=== PATIENT | male | born 2000 | race Caucasian/White ===

== ENCOUNTER 2023-07-29 08:48 | Emergency (ER) | payer BC ==
[2023-07-29 09:04] VITALS: O2SAT 96
[2023-07-29 09:08] VITALS: TEMP 98.7
--- NOTE | 2023-07-29 09:15 | ERPHSYRPT ---
- History of Present Illness Time Seen by Provider: 07/29/23 09:10 Source: patient, family Exam Limitations: no limitations Patient Subjective Stated Complaint: Pt c/o of "not feeling good" for a few days, reports coughing and now his ribs and chest hurt, states that it feels like a struggle to breath Triage Nursing Assessment: Pt brought to the ER by his mother, hypertensive, tachycardic, tachypnic, rates chest pain as 8/10, hurts worse when coughing, hx of asthma but no issues since around 5 years of age, pulses normal, skin n/w/d, lungs clear, walked to the room with a slow stable gait, doesn't appear to be in any distress Physician History: Patient is 23-year-old male with significant past medical history of asthma started having a fever chills shortness of breath cough since Monday which is 5 days ago. He felt better on Monday but that his symptoms came back on Monday where he started having some fever chills and shortness of breath with mucopurulent phlegm. He started having a body ache headache and not feeling well since yesterday so she came to the emergency room today. In the emergency room he was short of breath but denies any fever chills nausea or vomiting. Timing/Duration: day(s) (5 days) Activities at Onset: none Severity of Dyspnea-Max: moderate Severity of Dyspnea-Current: mild Possible Cause: occasional episodes Associated Symptoms: lightheadedness, wheezing, weakness, painful breathing, productive cough Allergies/Adverse Reactions: No Known Drug Allergies Allergy (Verified 07/29/23 09:03) Hx Influenza Vaccination/Date Given: No Hx Pneumococcal Vaccination/Date Given: No Travel Risk - International Travel Have you traveled outside of the country in past 3 weeks: No - Coronavirus Screening Are you exhibiting any of the following symptoms?: Yes Symptoms: Cough: New Onset, Shortness of Breath Close contact with a COVID-19 positive Pt in past 14-21 Days: No - Vaccine Status Have you recieved a Covid-19 vaccination: No - Review of Systems Constitutional: No Fever, No Chills Eyes: No Symptoms Ears, Nose, & Throat: No Symptoms Respiratory: Cough, Dyspnea, Wheezing, No Dyspnea on Exertion (METZGER) Cardiac: Chest Pain, No Edema, No Syncope Abdominal/Gastrointestinal: No Abdominal Pain, No Nausea, No Vomiting, No Diarrhea Genitourinary Symptoms: No Dysuria Musculoskeletal: No Back Pain, No Neck Pain Skin: No Rash Neurological: No Dizziness, No Focal Weakness, No Sensory Changes Psychological: No Symptoms Endocrine: No Symptoms All Other Systems: Reviewed and Negative - Past Medical History Pertinent Past Medical History: Yes Respiratory History: Asthma - Past Surgical History Past Surgical History: Yes Musculoskeletal: Orthopedic Surgery Other Surgical History: feet--flat footed - Social History Smoking Status: Never smoker Exposure to second hand smoke: No Drug Use: none Patient Lives Alone: No - Nursing Vital Signs Nursing Vital Signs: Initial Vital Signs Temperature 98.7 F 07/29/23 08:54 Pulse Rate 117 H 07/29/23 08:54 Respiratory Rate 27 H 07/29/23 08:54 Blood Pressure 149/99 07/29/23 08:54 O2 Sat by Pulse Oximetry 96 07/29/23 08:54 Pain Scale Pain Intensity 8 - Physical Exam General Appearance: no apparent distress, alert Eye Exam: PERRL/EOMI Neck Exam: normal inspection, supple Respiratory Exam: diminished breath sounds, rhonchi, wheezing Cardiovascular/Chest Exam: normal heart sounds, regular rate/rhythm Abdominal/Gastrointestinal Exam: soft, No tenderness, No distention, No mass Extremity Exam: non-tender, normal range of motion, normal inspection, no calf tenderness, no pedal edema Neurologic Exam: alert, oriented x 3, cooperative, respite care provider II-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 nml as tested, sensation nml, No motor deficits Skin Exam: normal color, warm, No dry SpO2 Interpretation: normal SpO2: 96 O2 Delivery: Room Air - Course Nursing assessment & vital signs reviewed: Yes EKG Interpreted by Me: Sinus Rhythm - Radiology Exams Chest X-ray Interpretation: Reviewed by me (right lower lobe pneumonia) Ordered Tests: Active Orders 24 hr Category Date Time Status EKG-ER Only STAT Care 07/29/23 09:01 Active CHEST 2 VIEWS (PA AND LAT) Stat Exams 07/29/23 09:01 Taken CBC W DIFF Stat Lab 07/29/23 09:10 Completed CMP Stat Lab 07/29/23 09:10 Completed Medication Summary Discontinued Medications Generic Name Dose Route Start Last Admin Trade Name Freq PRN Reason Stop Dose Admin Ceftriaxone Sodium 1,000 mg 07/29/23 09:33 07/29/23 09:53 Ceftriaxone Sodium 1000 Mg Inj Vial IM 07/29/23 09:34 1,000 mg STAT ONE Administration Ceftriaxone Sodium Confirm 07/29/23 09:46 Ceftriaxone Sodium 1000 Mg Inj Vial Administered 07/29/23 09:47 Dose 1,000 mg .ROUTE .STK-MED ONE Lab/Rad Data: Laboratory Result Diagrams 07/29/23 09:10 07/29/23 09:10 Laboratory Results 07/29/23 07/29/23 07/29/23 Range/Units 09:10 09:10 09:10 WBC 11.5 H (4.0-10.5) x10^3/uL RBC 5.81 H (4.1-5.6) x10^6/uL Hgb 17.2 (12.5-18.0) g/dL Hct 48.4 (42-50) % MCV 83.3 (78-100) fL MCH 29.6 (26-32) pg MCHC 35.5 (32-36) g/dL RDW 12.6 (11.5-14.0) % Plt Count 202 (150-450) x10^3/uL MPV 8.4 (7.5-11.0) fL Gran % 82.4 H (36.0-66.0) % Immature Gran % (Auto) 0.3 (0.00-0.4) % Nucleat RBC Rel Count 0.0 (0.00-0.1) % Eos # (Auto) 0.17 (0-0.5) x10^3/uL Immature Gran # (Auto) 0.03 (0.00-0.03) x10^3u/L Absolute Lymphs (auto) 0.86 L (1.0-4.6) x10^3/uL Absolute Monos (auto) 0.93 (0.0-1.3) x10^3/uL Absolute Nucleated RBC 0.00 (0.00-0.01) x10^3u/L Lymphocytes % 7.5 L (24.0-44.0) % Monocytes % 8.1 (0.0-12.0) % Eosinophils % 1.5 (0.00-5.0) % Basophils % 0.2 (0.0-0.4) % Absolute Granulocytes 9.44 H (1.4-6.9) x10^3/uL Basophils # 0.02 (0-0.4) x10^3/uL Sodium 137 (137-145) mmol/L Potassium 3.9 (3.5-5.1) mmol/L Chloride 102 (98-107) mmol/L Carbon Dioxide 24 (22-30) mmol/L Anion Gap 14.7 (5-15) MEQ/L BUN 12 (9-20) mg/dL Creatinine 0.93 (0.66-1.25) mg/dL Estimated GFR 117.6 ML/MIN Glucose 114 H (74-106) mg/dL Calcium 9.1 (8.4-10.2) mg/dL Total Bilirubin 0.60 (0.2-1.3) mg/dL AST 26 (17-59) U/L ALT 27 (0-50) U/L Alkaline Phosphatase 101 (38-126) U/L Serum Total Protein 8.0 (6.3-8.2) g/dL Albumin 4.6 (3.5-5.0) g/dL Influenza Type A Ag NEGATIVE (NEGATIVE) Influenza Type B Ag NEGATIVE (NEGATIVE) RSV (PCR) NEGATIVE (NEGATIVE) SARS-CoV-2 (PCR) NEGATIVE (NEGATIVE) - Progress Progress: improved Air Movement: good Blood Culture(s) Obtained: No Antibiotics given: Yes Counseled pt/family regarding: lab results, diagnosis, need for follow-up, rad results Medical Desision Making - Independent Historian Additional History obtained from: Mother - Discussion of managment Reviewed:: Test results - Diagnostic Testing Diagnostic test were ordered, analyzed, and reviewed by me: Yes Radiological Interpretation: Reviewed by me - Risk of complications Low Risk: Low risk of morbidity from additional dx testing or treatment - Departure Departure Disposition: Home Clinical Impression: Right lower lobe pneumonia Qualifiers: Pneumonia type: due to Pneumococcus Qualified Code(s): J13 - Pneumonia due to Streptococcus pneumoniae Condition: Stable Critical Care Time: No Referrals: ADOLFO NESBITT NP [Primary Care Provider] - Follow up/PCP as directed Instructions: Pneumonia, Adult (DC) Additional Instructions: Discharge/Care Plan ANGEL ELLINGTON was seen on 07/29/23 in the Emergency Room. The patient was counseled regarding Diagnosis,Lab results, Imaging studies, need for follow up and when to return to the Emergency Room. Prescriptions given: Discharge Note I have spoken with the patient and/or caregivers. I have explained the patient's condition, diagnosis and treatment plan based on the information available to me at this time. I have answered the patient's and/or caregiver's questions and addressed any concerns. The patient and/or caregivers have as good understanding of the patient's diagnosis, condition and treatment plan as can be expected at this point. The vital signs have been stable. The patient's condition is stable and appropriate for discharge from the emergency department. The patient will pursue further outpatient evaluation with the primary care physician or other designated or consulting physician as outlined in the discharge instructions. The patient and/or caregivers are agreeable to this plan of care and follow-up instructions have been explained in detail. The patient and/or caregivers have received these instruction. The patient/and or caregivers are aware that any significant change in condition or worsening of symptoms anna uld prompt an immediate return to this or the closest emergency department or call 911. MAULIKMERRILLANGEL was seen on 07/29/23 n the Emergency Room. At that time you were treated for an emergent condition, during your visit Laboratory, Radiology and/or other procedures may have been ordered. It is very important that you follow-up with your Primary Care Physician ADOLFO NESBITT within the next 24- 48 hours to review your Emergency Room visit and the final results of testing that was ordered. Some test results such as Urine Cultures, Blood Cultures, and other cultures if ordered will not be finalized for 24-48 hours. If you do not have a Primary Care Provider please call the medical records department at [phone] ext [phone] to obtain a copy of your results or you may sign into our patient portal to obtain these results by visiting us @ [email or web address] and completing the following steps: 1. Click on the Patient Portal link 2. Click the Patient Self Enrollment Link to complete the enrollment form and en tering your 3. Once the enrollment form is completed you will receive an email with a temporary ID and password at the email address you provided. 4. Next choose a user name and password. Your user name must be at least 4 characters long and your password must be at least 4 characters long. 5. Choose a security question from the list and provide your answer to the question. If you already have signed into the Health Portal you may access your Health Care Information 27/02 by the following steps: 1. Login to our website @ [email or web address] 2. Enter your original user name and password. FAQS The [facility] Health Portal is an online tool that contains your Lab Results, Radiology Reports, Visit History, Discharge Instructions and Health Summary Lab and Radiology Results will not be available for 72 hours on the portal. The Portal is a secure site, passwords are encryted and URLs are re-written so they cannot be copied and pasted. You and authorized family members are the only ones who can access your Portal. Also there is a timeout feature that protects your information if you leave the Portal page open. If you have technical difficulty please use the Contact Us link on the page this will allow you to submit any questions you have regarding the Portal or you may contact the Medical Record Department at [phone] ext [phone]. Prescriptions: Amoxicillin 500 mg Cap [Amoxil 500 mg] 500 mg PO TID #30 cap Benzonatate 200 mg PO QID #30 cap
[2023-07-29 09:23] LABS: Absolute Neutrophil Ct (ANC) 9.44 x10^3/uL (1.4-6.9); BASOPHIL % 0.2 % (0.0-0.4); Basophil (Absolute #) 0.02 x10^3/uL (0-0.4); Eosinophil % 1.5 % (0.00-5.0); Eosinophil (Absolute #) 0.17 x10^3/uL (0-0.5); Hematocrit 48.4 % (42-50); Hemoglobin 17.2 g/dL (12.5-18.0); IMMATURE GRAN # 0.03 x10^3u/L (0.00-0.03); IMMATURE GRAN % 0.3 % (0.00-0.4); Lymphocyte (Absolute #) 0.86 x10^3/uL (1.0-4.6); Lymphocytes % 7.5 % (24.0-44.0); Mean Cell Volume 83.3 fL (78-100); Mean Corpuscular Hemoglobin 29.6 pg (26-32); Mean Corpuscular Hgb Concent. 35.5 g/dL (32-36); Mean Platelet Volume 8.4 fL (7.5-11.0); Monocyte (Absolute #) 0.93 x10^3/uL (0.0-1.3); Monocytes % 8.1 % (0.0-12.0); Neutrophil % 82.4 % (36.0-66.0); Platelet Count 202 x10^3/uL (150-450); Red Blood Count 5.81 x10^6/uL (4.1-5.6); Red Cell Distribution Width 12.6 % (11.5-14.0); White Blood Count 11.5 x10^3/uL (4.0-10.5)
[2023-07-29] MEDS ORDERED: Rocephin 1000 MG INJ IM ONE (09:33)
[2023-07-29 09:36] LABS: ALBUMIN 4.6 g/dL (3.5-5.0); ANION GAP 14.7 MEQ/L (5-15); BILIRUBIN,TOTAL 0.6 mg/dL (0.2-1.3); Calcium 9.1 mg/dL (8.4-10.2); Creatinine 1 0.93 mg/dL (0.66-1.25); EST GLOMERULAR FILTRATION RATE 117.6 ML/MIN; Potassium 3.9 mmol/L (3.5-5.1)
[2023-07-29] MEDS ORDERED: Rocephin 1000 MG INJ ONE (09:46)
[2023-07-29 09:54] VITALS: PULSE 106; RESP 26
[2023-07-29 09:55] LABS: INFLUENZA A NEGATIVE (NEGATIVE); INFLUENZA B NEGATIVE (NEGATIVE); RESPIRATORY SYNCTIAL VIRUS NEGATIVE (NEGATIVE); SARS-CoV-2 Xpert Express NEGATIVE (NEGATIVE)
[2023-07-29 10:27] VITALS: BP 124/88
--- NOTE | 2023-07-29 20:52 | XRAY ---
Indication: Short of breath. Comparison: None PA/lateral chest demonstrates lingula infiltrate. Incidental left upper lobe calcified granuloma. Remaining heart and lungs unremarkable. Bony thorax intact.
== END 2023-07-29 10:27 | disposition home or self-care (01) ==
LOC: ED 08:48
DX: J13 Pneumonia due to Streptococcus pneumoniae (principal); R50.9 Fever, unspecified; R06.02 Shortness of breath; R05.1 Acute cough; M79.10 Myalgia, unspecified site; R51.9 Headache, unspecified; Z28.310 Unvaccinated for COVID-19
CPT/HCPCS: 0241U; 36415; 71046; 80053; 85025; 93005; 96372; 99284; J0696

== ENCOUNTER 2023-08-02 19:14 | Observation (INO) | payer BC ==
--- NOTE | 2023-08-02 19:31 | ERPHSYRPT ---
- History of Present Illness Time Seen by Provider: 08/02/23 19:20 Source: patient Exam Limitations: no limitations Patient Subjective Stated Complaint: pt for shortness of breath that started last night, pt was recently diagnosed with PNA on Monday in ED and prescribed antibiotic which he is still currently taking and a cough medicine Triage Nursing Assessment: pt ambulatory to bed by self with steady gait, pt alert and oriented x3, skin pwd, pt c/o increased shortness of breath since last night, pt states he was recently diagnosed with pneumonia on monday in ED and was given amoxicillin antibiotic and cough medication for home, pt currently taking both medications, no resp distress noted, lung sounds clear and equal through out antierorly and posteriorly. Physician History: Patient is a 23-year-old male presents to our ED for evaluation of shortness of breath. Patient was in our ED on Monday, 4 days ago with the same. Patient was diagnosed with a pneumonia. Patient started on amoxicillin and a cough medication. Patient states he feels that his shortness of breath is progressing. 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 Symptoms are progressive. Symptoms are moderate in intensity. Exertion worsens symptoms. Patient states otherwise healthy. He is a non-smoker. He voices no other complaints or concerns at this time. Portions of this note were created with voice recognition technology. There may be grammatical, spelling, punctuation or sound alike errors Timing/Duration: day(s) (4 days) Activities at Onset: activity Severity of Dyspnea-Max: moderate Severity of Dyspnea-Current: mild Modifying Factors: Improves With: activity Associated Symptoms: denies symptoms Allergies/Adverse Reactions: No Known Drug Allergies Allergy (Verified 08/02/23 19:15) Hx Tetanus, Diphtheria Vaccination/Date Given: Yes Hx Influenza Vaccination/Date Given: No Hx Pneumococcal Vaccination/Date Given: No Immunizations Up to Date: No Travel Risk - International Travel Have you traveled outside of the country in past 3 weeks: No - Coronavirus Screening Are you exhibiting any of the following symptoms?: Yes Symptoms: Cough: New Onset, Shortness of Breath Close contact with a COVID-19 positive Pt in past 14-21 Days: No - Vaccine Status Have you recieved a Covid-19 vaccination: No - Review of Systems Constitutional: No Symptoms, No Fever, No Chills Eyes: No Symptoms Ears, Nose, & Throat: No Symptoms Respiratory: No Symptoms, No Cough, No Dyspnea Cardiac: No Symptoms, No Chest Pain, No Edema, No Syncope Abdominal/Gastrointestinal: No Symptoms, No Abdominal Pain, No Nausea, No Vomiting, No Diarrhea Genitourinary Symptoms: No Symptoms, No Dysuria Musculoskeletal: No Symptoms, No Back Pain, No Neck Pain Skin: No Symptoms, No Rash Neurological: No Symptoms, No Dizziness, No Focal Weakness, No Sensory Changes Psychological: No Symptoms Endocrine: No Symptoms Hematologic/Lymphatic: No Symptoms Immunological/Allergic: No Symptoms All Other Systems: Reviewed and Negative - Past Medical History Pertinent Past Medical History: Yes Neurological History: No Pertinent History ENT History: No Pertinent History Cardiac History: No Pertinent History Respiratory History: Asthma Endocrine Medical History: No Pertinent History Musculoskeletal History: No Pertinent History GI Medical History: No Pertinent History History: No Pertinent History Psycho-Social History: No Pertinent History Male Reproductive Disorders: No Pertinent History - Past Surgical History Past Surgical History: Yes Neuro Surgical History: No Pertinent History Cardiac: No Pertinent History Respiratory: No Pertinent History Gastrointestinal: No Pertinent History Genitourinary: No Pertinent History Musculoskeletal: Orthopedic Surgery Male Surgical History: No Pertinent History Other Surgical History: feet--flat footed - Social History Smoking Status: Never smoker Exposure to second hand smoke: No Drug Use: none Patient Lives Alone: No - Nursing Vital Signs Nursing Vital Signs: Initial Vital Signs Pulse Rate 89 08/02/23 19:15 Respiratory Rate 28 H 08/02/23 19:15 Blood Pressure 140/92 08/02/23 19:15 O2 Sat by Pulse Oximetry 93 L 08/02/23 19:15 Pain Scale Pain Intensity 6 - Physical Exam General Appearance: no apparent distress, alert Eye Exam: PERRL/EOMI Ears, Nose, Throat Exam: hearing grossly normal, normal ENT inspection, normal pharynx Neck Exam: normal inspection, supple, full range of motion Respiratory Exam: normal breath sounds, lungs clear, airway intact Cardiovascular/Chest Exam: normal heart sounds, regular rate/rhythm Abdominal/Gastrointestinal Exam: soft, No tenderness, No distention, No mass Extremity Exam: non-tender, normal range of motion, normal inspection, no calf tenderness, no pedal edema Neurologic Exam: alert, oriented x 3, cooperative, 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 Minor patchy right middle lobe airspace disease. Tiny pneumomediastinum communi cating with tiny right pneumothorax) Ordered Tests: Active Orders 24 hr Category Date Time Status [employer] Supervisor STAT Care 08/02/23 19:37 Active EKG-ER Only STAT Care 08/02/23 19:36 Active Pulse Oximetry (ED) STAT Care 08/02/23 19:36 Active CHEST WITH CONTRAST [CT] Stat Exams 08/02/23 19:37 Taken CBC W DIFF Stat Lab 08/02/23 19:55 Completed CMP Stat Lab 08/02/23 19:55 Completed TROPONIN Q4H Lab 08/02/23 19:55 Completed TROPONIN Q4H Lab 08/02/23 23:45 Ordered TROPONIN Q4H Lab 08/03/23 03:45 Ordered Transfer Order Routine Transfer 08/02/23 Ordered Medication Summary Generic Name Dose Route Start Last Admin Trade Name Freq PRN Reason Stop Dose Admin Ceftriaxone Sodium/Dextrose 2 g in 50 mls @ 100 mls/hr 08/02/23 22:31 Rocephin 2 Gm-D5w 50ml Bag IV 08/02/23 23:00 STAT STA Azithromycin 500 mg in 250 mls @ 250 mls/hr 08/02/23 22:31 Zithromax 500 Mg/ 250 Ml Nacl Premix IV 08/02/23 23:30 STAT STA Lab/Rad Data: Laboratory Result Diagrams 08/02/23 19:55 08/02/23 19:55 Laboratory Results 08/02/23 08/02/23 08/02/23 Range/Units 19:55 19:55 19:55 WBC 10.7 H (4.0-10.5) x10^3/uL RBC 5.85 H (4.1-5.6) x10^6/uL Hgb 17.1 (12.5-18.0) g/dL Hct 47.5 (42-50) % MCV 81.2 (78-100) fL MCH 29.2 (26-32) pg MCHC 36.0 (32-36) g/dL RDW 12.4 (11.5-14.0) % Plt Count 277 (150-450) x10^3/uL MPV 8.5 (7.5-11.0) fL Gran % 66.9 H (36.0-66.0) % Immature Gran % (Auto) 0.3 (0.00-0.4) % Nucleat RBC Rel Count 0.0 (0.00-0.1) % Eos # (Auto) 0.38 (0-0.5) x10^3/uL Immature Gran # (Auto) 0.03 (0.00-0.03) x10^3u/L Absolute Lymphs (auto) 1.93 (1.0-4.6) x10^3/uL Absolute Monos (auto) 1.15 (0.0-1.3) x10^3/uL Absolute Nucleated RBC 0.00 (0.00-0.01) x10^3u/L Lymphocytes % 18.0 L (24.0-44.0) % Monocytes % 10.7 (0.0-12.0) % Eosinophils % 3.5 (0.00-5.0) % Basophils % 0.6 (0.0-0.4) % Absolute Granulocytes 7.17 H (1.4-6.9) x10^3/uL Basophils # 0.06 (0-0.4) x10^3/uL Sodium 137 (137-145) mmol/L Potassium 3.7 (3.5-5.1) mmol/L Chloride 102 (98-107) mmol/L Carbon Dioxide 27 (22-30) mmol/L Anion Gap 11.9 (5-15) MEQ/L BUN 8 L (9-20) mg/dL Creatinine 0.88 (0.66-1.25) mg/dL Estimated GFR 123.1 ML/MIN Glucose 92 (74-106) mg/dL Calcium 9.4 (8.4-10.2) mg/dL Total Bilirubin 0.90 (0.2-1.3) mg/dL AST 28 (17-59) U/L ALT 28 (0-50) U/L Alkaline Phosphatase 98 (38-126) U/L Troponin I < 0.012 (0.000-0.034) ng/mL Serum Total Protein 8.1 (6.3-8.2) g/dL Albumin 4.8 (3.5-5.0) g/dL - Progress Progress: improved Air Movement: good Progress Note: Case discussed with Dr. Lawson at 10:23 PM. He agrees to admission to [facility] for repeat x-ray in the morning. Plan of care discussed with patient. He agrees to admission at [facility] for further evaluation and treatment. Portions of this note were created with voice recognition technology. There may be grammatical, spelling, punctuation or sound alike errors 08/02/23 22:21 23-year-old male presents to our ER complaining of shortness of breath. Patient was seen 4 days ago in our ED diagnosed with pneumonia. Patient currently on amoxicillin and cough medication. CTA chest reveals tiny pneumomediastinum and tiny right pneumothorax. We will admit patient for observation. Patient currently on oxygen. The known pneumonia was again redemonstrated. Patient dosed with Rocephin and azithromycin. Patient was COVID-negative during his last ED visit 4 days ago. Plan of care discussed with patient. He agrees to admission at [facility] for further evaluation and treatment. Portions of this note were created with voice recognition technology. There may be grammatical, spelling, punctuation or sound alike errors Complexity problem addressed is moderate acute complicated No critical care time Complex of data reviewed and analyzed is extensive. Test ordered test reviewed. Results analyzed and correlated clinically with history and physical examination. Management discussed with general surgery and hospitalist who agreed to admission at [facility] for further evaluation and treatment. Portions of this note were created with voice recognition technology. There may be grammatical, spelling, punctuation or sound alike errors Risk of complication and or risk of morbidity/mortality of patient management is moderate. Patient requires hospitalization for further evaluation and treatment. Vital stable. Time spent admit patient is approximately 20 minutes. Plan of care established for shared decision making. No social determinants of health present impede follow-up. Portions of this note were created with voice recognition technology. There may be grammatical, spelling, punctuation or sound alike errors 08/02/23 22:35 Blood Culture(s) Obtained: No Antibiotics given: No Discussed with Dr.: Stoner (Case discussed with Dr. Murcia at 10:[address] Murcia excepts admission to [facility] for further evaluation and treatment.) Counseled pt/family regarding: lab results, diagnosis, rad results - Departure Departure Disposition: Observation Clinical Impression: Shortness of breath, Pneumomediastinum, Pneumothorax, Pneumonia Condition: Stable Critical Care Time: No Referrals: ADOLFO NESBITT, [employer] [Primary Care Provider] - Follow up/PCP as directed
[2023-08-02 20:04] LABS: Absolute Neutrophil Ct (ANC) 7.17 x10^3/uL (1.4-6.9); BASOPHIL % 0.6 % (0.0-0.4); Basophil (Absolute #) 0.06 x10^3/uL (0-0.4); Eosinophil % 3.5 % (0.00-5.0); Eosinophil (Absolute #) 0.38 x10^3/uL (0-0.5); Hematocrit 47.5 % (42-50); Hemoglobin 17.1 g/dL (12.5-18.0); IMMATURE GRAN # 0.03 x10^3u/L (0.00-0.03); IMMATURE GRAN % 0.3 % (0.00-0.4); Lymphocyte (Absolute #) 1.93 x10^3/uL (1.0-4.6); Mean Cell Volume 81.2 fL (78-100); Mean Corpuscular Hemoglobin 29.2 pg (26-32); Mean Platelet Volume 8.5 fL (7.5-11.0); Monocyte (Absolute #) 1.15 x10^3/uL (0.0-1.3); Monocytes % 10.7 % (0.0-12.0); Neutrophil % 66.9 % (36.0-66.0); Platelet Count 277 x10^3/uL (150-450); Red Blood Count 5.85 x10^6/uL (4.1-5.6); Red Cell Distribution Width 12.4 % (11.5-14.0); White Blood Count 10.7 x10^3/uL (4.0-10.5)
[2023-08-02 20:20] LABS: ALBUMIN 4.8 g/dL (3.5-5.0); ANION GAP 11.9 MEQ/L (5-15); BILIRUBIN,TOTAL 0.9 mg/dL (0.2-1.3); Calcium 9.4 mg/dL (8.4-10.2); Creatinine 1 0.88 mg/dL (0.66-1.25); EST GLOMERULAR FILTRATION RATE 123.1 ML/MIN; Potassium 3.7 mmol/L (3.5-5.1); Total Protein 8.1 g/dL (6.3-8.2)
[2023-08-02] MEDS ORDERED: Zithromax 500 MG/ 250 ML NaCl Premix 500 MG/250 ML IVPB IV STA (22:31)
[2023-08-02] MEDS ORDERED: ROCEPHIN 2 Gm-D5w 50ML BAG** 2 G/50 ML IVPB IV STA (22:31)
[2023-08-02] MEDS ORDERED: ROCEPHIN 2 Gm-D5w 50ML BAG** 2 G/50 ML IVPB IV ONE (22:35)
[2023-08-02] MEDS ORDERED: Robitussin AC Syrup Unit Dose Cup PO PRN (23:30)
[2023-08-02] MEDS ORDERED: Docusate Sodium 100 MG PO PRN (23:45)
[2023-08-02] MEDS ORDERED: Zofran 4 MG/2 ML VIAL IV PRN (23:45)
[2023-08-02] MEDS ORDERED: FEVERALL 650 MG PR PRN (23:45)
--- NOTE | 2023-08-02 23:55 | PCM.HP ---
History of Present Illness - Chief Complaint Chief Complaint: Pneumomediastinum, pneumothorax Date: 08/02/23 History of Present Illness: is a 23 year old male is a patient with a history of Factor V Leiden heterozygosity (but no history of clotting) and a recent diagnosis of a lingular pneumonia approximately 4 days ago (treated with oral Amoxicilin) who now presents to the hospital with worsening cough paroxysms and shortness of breath for 1 day. The cough has been productive intermittently of clear sputum, and he denies hemoptysis. The dyspnea has worsened with activity. - Review of Systems Constitutional: No Symptoms Eyes: No Symptoms Ears, Nose, & Throat: No Symptoms Respiratory: Cough, Short Of Breath Cardiac: No Symptoms Abdominal/Gastrointestinal: No Symptoms Genitourinary Symptoms: No Symptoms Musculoskeletal: No Symptoms Skin: No Symptoms Neurological: No Symptoms Psychological: No Symptoms Endocrine: No Symptoms Hematologic/Lymphatic: No Symptoms Immunological/Allergic: No Symptoms All Other Systems: Reviewed and Negative Medications & Allergies Home Medications: Home Medication List Amoxicillin 500 mg Cap [Amoxil 500 mg] 500 mg PO TID #30 cap 07/29/23 [Rx Confirmed 08/02/23] Benzonatate 200 mg PO QID #30 cap 07/29/23 [Rx Confirmed 08/02/23] Allergies/Adverse Reactions: Allergies Allergy/AdvReac Type Severity Reaction Status Date / Time No Known Drug Allergies Allergy Verified 08/02/23 19:15 - Past Medical History Past Medical History: Yes Neurological History: No Pertinent History ENT History: No Pertinent History Cardiac History: No Pertinent History Respiratory History: Asthma Endocrine Medical History: No Pertinent History Musculoskelatal History: No Pertinent History GI Medical History: No Pertinent History History: No Pertinent History Pyscho-Social History: No Pertinent History Male Reproductive Disorders: No Pertinent History - Past Surgical History Past Surgical History: Yes Neuro Surgical History: No Pertinent History Cardiac History: No Pertinent History Respiratory Surgery: No Pertinent History GI Surgical History: No Pertinent History Genitourinary Surgical Hx: No Pertinent History Musculskeletal Surgical Hx: Orthopedic Surgery Male Surgical History: No Pertinent History Other Surgical History: feet--flat footed - Social History Smoking Status: Never smoker Exposure to second hand smoke: No Alcohol: None Drug Use: none - Physical Exam Vital Signs: Vital Signs - 24 hr Temp Pulse Resp BP BP Pulse Ox 08/02/23 23:19 98.2 F 83 18 137/82 99 08/02/23 23:18 100 08/02/23 22:40 96 08/02/23 22:00 89 26 H 128/97 95 08/02/23 21:33 82 28 H 132/97 94 L 08/02/23 21:00 87 23 123/80 93 L 08/02/23 20:30 90 21 118/78 95 08/02/23 20:00 87 24 110/77 95 08/02/23 19:41 95 08/02/23 19:34 93 H 08/02/23 19:30 85 27 H 113/79 94 L 08/02/23 19:17 98.4 F 95 H 24 140/92 96 08/02/23 19:15 89 28 H 140/92 93 L General Appearance: no apparent distress, alert Neurologic Exam: alert, oriented x 3, cooperative, four slide operator II-XII nml as tested, normal mood/affect, nml cerebellar function Eye Exam: PERRL/EOMI, eyes nml inspection Ears, Nose, Throat Exam: normal ENT inspection Neck Exam: normal inspection, non-tender, supple, full range of motion Respiratory Exam: normal breath sounds, lungs clear Cardiovascular Exam: regular rate/rhythm, normal heart sounds Gastrointestinal/Abdomen Exam: soft, normal bowel sounds Back Exam: normal range of motion Extremity Exam: normal inspection, normal range of motion Skin Exam: normal color Results - Labs Lab/Micro Results: Lab Results-Last 24 Hours 08/02/23 08/02/23 08/02/23 Range/Units 19:55 19:55 19:55 WBC 10.7 H (4.0-10.5) x10^3/uL RBC 5.85 H (4.1-5.6) x10^6/uL Hgb 17.1 (12.5-18.0) g/dL Hct 47.5 (42-50) % MCV 81.2 (78-100) fL MCH 29.2 (26-32) pg MCHC 36.0 (32-36) g/dL RDW 12.4 (11.5-14.0) % Plt Count 277 (150-450) x10^3/uL MPV 8.5 (7.5-11.0) fL Gran % 66.9 H (36.0-66.0) % Immature Gran % (Auto) 0.3 (0.00-0.4) % Nucleat RBC Rel Count 0.0 (0.00-0.1) % Eos # (Auto) 0.38 (0-0.5) x10^3/uL Immature Gran # (Auto) 0.03 (0.00-0.03) x10^3u/L Absolute Lymphs (auto) 1.93 (1.0-4.6) x10^3/uL Absolute Monos (auto) 1.15 (0.0-1.3) x10^3/uL Absolute Nucleated RBC 0.00 (0.00-0.01) x10^3u/L Lymphocytes % 18.0 L (24.0-44.0) % Monocytes % 10.7 (0.0-12.0) % Eosinophils % 3.5 (0.00-5.0) % Basophils % 0.6 (0.0-0.4) % Absolute Granulocytes 7.17 H (1.4-6.9) x10^3/uL Basophils # 0.06 (0-0.4) x10^3/uL Sodium 137 (137-145) mmol/L Potassium 3.7 (3.5-5.1) mmol/L Chloride 102 (98-107) mmol/L Carbon Dioxide 27 (22-30) mmol/L Anion Gap 11.9 (5-15) MEQ/L BUN 8 L (9-20) mg/dL Creatinine 0.88 (0.66-1.25) mg/dL Estimated GFR 123.1 ML/MIN Glucose 92 (74-106) mg/dL Calcium 9.4 (8.4-10.2) mg/dL Total Bilirubin 0.90 (0.2-1.3) mg/dL AST 28 (17-59) U/L ALT 28 (0-50) U/L Alkaline Phosphatase 98 (38-126) U/L Troponin I < 0.012 (0.000-0.034) ng/mL Serum Total Protein 8.1 (6.3-8.2) g/dL Albumin 4.8 (3.5-5.0) g/dL - Radiology Impressions Radiology Exams & Impressions: Radiology Procedures Category Date Time Status CHEST 2 VIEWS (PA AND LAT) Routine Exams 08/03/23 07:00 Ordered CHEST WITH CONTRAST [CT] Stat Exams 08/02/23 19:37 Taken - Other Procedures and Tests Respiratory Therapy 08/02/23 23:18 Oxygen Non-rebreather 100% Assessment/Plan (1) Pneumothorax Current Visit: Yes Status: Acute Assessment & Plan: Small apical pneumothorax and pneumomediastinum noted on imaging. Continue oxygen (no desaturation noted in ED), cough suppression, antibiotics, and repeat CXR imaging in AM per the recommendations of Dr. Lawson, who was consulted by Dr. Pereira. Code(s): J93.9 - PNEUMOTHORAX, UNSPECIFIED (2) Pneumomediastinum Current Visit: Yes Status: Acute Assessment & Plan: As above, repeat CXR in AM to reassess. Code(s): J98.2 - INTERSTITIAL EMPHYSEMA (3) Right lower lobe pneumonia Current Visit: No Status: Acute Assessment & Plan: Will place the patient on IV antibiotics. May need alternative regimen plus aggressive cough suppression at the time of discharge. Also will need work/activity clearance at the time of discharge. Code(s): J18.9 - PNEUMONIA, UNSPECIFIED ORGANISM Telemedicine Encounter - Telemedicine Encounter Telemedicine Encounter: The entirety of this encounter was performed via Telemedicine"
[2023-08-02] MEDS ORDERED: Zithromax 500 MG/ 250 ML NaCl Premix 500 MG/250 ML IVPB IV ONE (23:57)
[2023-08-03 04:23] LABS: Absolute Neutrophil Ct (ANC) 5.62 x10^3/uL (1.4-6.9); BASOPHIL % 0.3 % (0.0-0.4); Basophil (Absolute #) 0.03 x10^3/uL (0-0.4); Eosinophil % 5.6 % (0.00-5.0); Eosinophil (Absolute #) 0.51 x10^3/uL (0-0.5); Hematocrit 45.5 % (42-50); Hemoglobin 16.3 g/dL (12.5-18.0); IMMATURE GRAN # 0.04 x10^3u/L (0.00-0.03); IMMATURE GRAN % 0.4 % (0.00-0.4); Lymphocytes % 20.9 % (24.0-44.0); Mean Cell Volume 81.8 fL (78-100); Mean Corpuscular Hemoglobin 29.3 pg (26-32); Mean Corpuscular Hgb Concent. 35.8 g/dL (32-36); Mean Platelet Volume 8.7 fL (7.5-11.0); Monocyte (Absolute #) 0.97 x10^3/uL (0.0-1.3); Monocytes % 10.7 % (0.0-12.0); Neutrophil % 62.1 % (36.0-66.0); Platelet Count 261 x10^3/uL (150-450); Red Blood Count 5.56 x10^6/uL (4.1-5.6); Red Cell Distribution Width 12.7 % (11.5-14.0); White Blood Count 9.1 x10^3/uL (4.0-10.5)
[2023-08-03 04:38] LABS: ANION GAP 14.7 MEQ/L (5-15); Calcium 9.1 mg/dL (8.4-10.2); Creatinine 1 0.81 mg/dL (0.66-1.25); EST GLOMERULAR FILTRATION RATE 126.3 ML/MIN; Potassium 3.8 mmol/L (3.5-5.1)
--- NOTE | 2023-08-03 05:20 | PCM.NOTE ---
Date and Time: 08/03/2319 Subjective Assessment: is a 23 year old male is a patient with a history of Factor V Leiden heterozygosity (but no history of clotting) and a recent diagnosis of a lingular pneumonia approximately 4 days ago (treated with oral Amoxicilin) who now presents to the hospital with worsening cough paroxysms and shortness of breath for 1 day. The cough has been productive intermittently of clear sputum, and he denies hemoptysis. The dyspnea has worsened with activity. 08/03/23: Met with patient bedside. Endorses improvement although still short of breath. Discussed repeat CXR showing minimal RLL pneumothorax. Surgery has been consulted although unlikely he will require chest tube. Plan for observation tonight and continued treatment with Rocephin/azithromycin. Denies fever,cough, cp, abdominal pain, CHRISTIANSON, dizziness, N/V/D. - Review of Systems Constitutional: No Symptoms Eyes: No Symptoms Ears, Nose, & Throat: No Symptoms Respiratory: Short Of Breath Cardiac: No Symptoms Abdominal/Gastrointestinal: No Symptoms Genitourinary Symptoms: No Symptoms Musculoskeletal: No Symptoms Skin: No Symptoms Neurological: No Symptoms Objective Exam General Appearance: no apparent distress Neurologic Exam: alert, oriented x 3, cooperative Skin Exam: normal color Eye Exam: PERRL Ears, Nose, Throat Exam: moist mucous membranes Neck Exam: normal inspection Respiratory Exam: diminished breath sounds Cardiovascular Exam: regular rate/rhythm, normal heart sounds Gastrointestinal/Abdomen Exam: soft, normal bowel sounds Extremity Exam: normal inspection Back Exam: normal inspection Male Genitalia Exam: deferred Rectal Exam: deferred OBJECTIVE DATA Vital Signs: Vital Signs - 24 hr Temp Pulse Resp BP BP Pulse Ox 08/03/23 04:00 98.3 F 76 23 124/77 98 08/02/23 23:19 98.2 F 83 18 137/82 99 08/02/23 23:18 100 08/02/23 22:40 96 08/02/23 22:00 89 26 H 128/97 95 08/02/23 21:33 82 28 H 132/97 94 L 08/02/23 21:00 87 23 123/80 93 L 08/02/23 20:30 90 21 118/78 95 08/02/23 20:00 87 24 110/77 95 08/02/23 19:41 95 08/02/23 19:34 93 H 08/02/23 19:30 85 27 H 113/79 94 L 08/02/23 19:17 98.4 F 95 H 24 140/92 96 08/02/23 19:15 89 28 H 140/92 93 L Pain Assessment - Last Documented Pain Intensity 3 Intake and Output: Intake & Output 07/31/23 08/01/23 08/02/23 08/03/23 11:59 11:59 11:59 11:59 Weight 104.9 kg Lab Results: Lab Results-Last 24 Hours 08/02/23 08/02/23 08/02/23 Range/Units 19:55 19:55 19:55 WBC 10.7 H (4.0-10.5) x10^3/uL RBC 5.85 H (4.1-5.6) x10^6/uL Hgb 17.1 (12.5-18.0) g/dL Hct 47.5 (42-50) % MCV 81.2 (78-100) fL MCH 29.2 (26-32) pg MCHC 36.0 (32-36) g/dL RDW 12.4 (11.5-14.0) % Plt Count 277 (150-450) x10^3/uL MPV 8.5 (7.5-11.0) fL Gran % 66.9 H (36.0-66.0) % Immature Gran % (Auto) 0.3 (0.00-0.4) % Nucleat RBC Rel Count 0.0 (0.00-0.1) % Eos # (Auto) 0.38 (0-0.5) x10^3/uL Immature Gran # (Auto) 0.03 (0.00-0.03) x10^3u/L Absolute Lymphs (auto) 1.93 (1.0-4.6) x10^3/uL Absolute Monos (auto) 1.15 (0.0-1.3) x10^3/uL Absolute Nucleated RBC 0.00 (0.00-0.01) x10^3u/L Lymphocytes % 18.0 L (24.0-44.0) % Monocytes % 10.7 (0.0-12.0) % Eosinophils % 3.5 (0.00-5.0) % Basophils % 0.6 (0.0-0.4) % Absolute Granulocytes 7.17 H (1.4-6.9) x10^3/uL Basophils # 0.06 (0-0.4) x10^3/uL Sodium 137 (137-145) mmol/L Potassium 3.7 (3.5-5.1) mmol/L Chloride 102 (98-107) mmol/L Carbon Dioxide 27 (22-30) mmol/L Anion Gap 11.9 (5-15) MEQ/L BUN 8 L (9-20) mg/dL Creatinine 0.88 (0.66-1.25) mg/dL Estimated GFR 123.1 ML/MIN Glucose 92 (74-106) mg/dL Calcium 9.4 (8.4-10.2) mg/dL Total Bilirubin 0.90 (0.2-1.3) mg/dL AST 28 (17-59) U/L ALT 28 (0-50) U/L Alkaline Phosphatase 98 (38-126) U/L Troponin I < 0.012 (0.000-0.034) ng/mL Serum Total Protein 8.1 (6.3-8.2) g/dL Albumin 4.8 (3.5-5.0) g/dL 08/02/23 08/03/23 08/03/23 Range/Units 23:50 03:45 03:45 WBC 9.1 (4.0-10.5) x10^3/uL RBC 5.56 (4.1-5.6) x10^6/uL Hgb 16.3 (12.5-18.0) g/dL Hct 45.5 (42-50) % MCV 81.8 (78-100) fL MCH 29.3 (26-32) pg MCHC 35.8 (32-36) g/dL RDW 12.7 (11.5-14.0) % Plt Count 261 (150-450) x10^3/uL MPV 8.7 (7.5-11.0) fL Gran % 62.1 (36.0-66.0) % Immature Gran % (Auto) 0.4 (0.00-0.4) % Nucleat RBC Rel Count 0.0 (0.00-0.1) % Eos # (Auto) 0.51 H (0-0.5) x10^3/uL Immature Gran # (Auto) 0.04 H (0.00-0.03) x10^3u/L Absolute Lymphs (auto) 1.90 (1.0-4.6) x10^3/uL Absolute Monos (auto) 0.97 (0.0-1.3) x10^3/uL Absolute Nucleated RBC 0.00 (0.00-0.01) x10^3u/L Lymphocytes % 20.9 L (24.0-44.0) % Monocytes % 10.7 (0.0-12.0) % Eosinophils % 5.6 H (0.00-5.0) % Basophils % 0.3 (0.0-0.4) % Absolute Granulocytes 5.62 (1.4-6.9) x10^3/uL Basophils # 0.03 (0-0.4) x10^3/uL Sodium (137-145) mmol/L Potassium (3.5-5.1) mmol/L Chloride (98-107) mmol/L Carbon Dioxide (22-30) mmol/L Anion Gap (5-15) MEQ/L BUN (9-20) mg/dL Creatinine (0.66-1.25) mg/dL Estimated GFR ML/MIN Glucose (74-106) mg/dL Calcium (8.4-10.2) mg/dL Total Bilirubin (0.2-1.3) mg/dL AST (17-59) U/L ALT (0-50) U/L Alkaline Phosphatase (38-126) U/L Troponin I < 0.012 < 0.012 (0.000-0.034) ng/mL Serum Total Protein (6.3-8.2) g/dL Albumin (3.5-5.0) g/dL 08/03/23 Range/Units 03:45 WBC (4.0-10.5) x10^3/uL RBC (4.1-5.6) x10^6/uL Hgb (12.5-18.0) g/dL Hct (42-50) % MCV (78-100) fL MCH (26-32) pg MCHC (32-36) g/dL RDW (11.5-14.0) % Plt Count (150-450) x10^3/uL MPV (7.5-11.0) fL Gran % (36.0-66.0) % Immature Gran % (Auto) (0.00-0.4) % Nucleat RBC Rel Count (0.00-0.1) % Eos # (Auto) (0-0.5) x10^3/uL Immature Gran # (Auto) (0.00-0.03) x10^3u/L Absolute Lymphs (auto) (1.0-4.6) x10^3/uL Absolute Monos (auto) (0.0-1.3) x10^3/uL Absolute Nucleated RBC (0.00-0.01) x10^3u/L Lymphocytes % (24.0-44.0) % Monocytes % (0.0-12.0) % Eosinophils % (0.00-5.0) % Basophils % (0.0-0.4) % Absolute Granulocytes (1.4-6.9) x10^3/uL Basophils # (0-0.4) x10^3/uL Sodium 136 L (137-145) mmol/L Potassium 3.8 (3.5-5.1) mmol/L Chloride 102 (98-107) mmol/L Carbon Dioxide 23 (22-30) mmol/L Anion Gap 14.7 (5-15) MEQ/L BUN 10 (9-20) mg/dL Creatinine 0.81 (0.66-1.25) mg/dL Estimated GFR 126.3 ML/MIN Glucose 90 (74-106) mg/dL Calcium 9.1 (8.4-10.2) mg/dL Total Bilirubin (0.2-1.3) mg/dL AST (17-59) U/L ALT (0-50) U/L Alkaline Phosphatase (38-126) U/L Troponin I (0.000-0.034) ng/mL Serum Total Protein (6.3-8.2) g/dL Albumin (3.5-5.0) g/dL Radiology Exams: Radiology Procedures Category Date Time Status CHEST 2 VIEWS (PA AND LAT) Routine Exams 08/03/23 07:00 Ordered CHEST WITH CONTRAST [CT] Stat Exams 08/02/23 19:37 Taken Assessment/Plan (1) Pneumothorax Current Visit: Yes Status: Acute Assessment & Plan: Small apical pneumothorax and pneumomediastinum noted on imaging. Continue oxygen (no desaturation noted in ED), cough suppression, antibiotics, and repeat CXR imaging in AM per the recommendations of Dr. Lawson, who was consulted by Dr Destini Pereira. Code(s): J93.9 - PNEUMOTHORAX, UNSPECIFIED 08/03: -Surgery consult pending -Repeat CXR showing reidentified minimal right pneumothorax (2) Pneumomediastinum Current Visit: Yes Status: Acute Assessment & Plan: As above, repeat CXR in AM to reassess. Code(s): J98.2 - INTERSTITIAL EMPHYSEMA (3) Right lower lobe pneumonia Current Visit: No Status: Acute Assessment & Plan: Will place the patient on IV antibiotics. May need alternative regimen plus aggressive cough suppression at the time of discharge. Also will need work/activity clearance at the time of discharge. 08/03: -Continue ceftriaxone/azithromycin Code(s): J18.9 - PNEUMONIA, UNSPECIFIED ORGANISM Code(s): J93.9 - PNEUMOTHORAX, UNSPECIFIED (2) Pneumomediastinum Current Visit: Yes Status: Acute Code(s): J98.2 - INTERSTITIAL EMPHYSEMA (3) Right lower lobe pneumonia Current Visit: No Status: Acute Code(s): J18.9 - PNEUMONIA, UNSPECIFIED ORGANISM
--- NOTE | 2023-08-03 08:50 | XRAY ---
Indication: Short of breath. Pneumonia. Multiple contiguous axial images obtained through the chest using 80 cc Isovue 370 contrast and PE protocol. Comparison: None Adequate opacification of the pulmonary arteries. No pulmonary embolus. Tiny pneumomediastinum without clear etiology. Heart not enlarged. Aorta is normal in course and caliber with incidental aberrant right subclavian artery. Tiny left suprahilar calcified nodes. No pathologic mediastinal/hilar lymphadenopathy. Lungs demonstrate tiny right lower lobe paramediastinal pneumothorax communicating with pneumomediastinum. Remaining lungs demonstrates minimal right middle lobe patchy airspace disease without effusion. A few incidental bilateral calcified granulomas. Bony thorax intact with small multilevel thoracolumbar Schmorl nodes. Limited upper abdomen including adrenal glands are unremarkable. Impression: 1. Negative pulmonary embolus. 2. Tiny pneumomediastinum medicating with tiny right pneumothorax. No clear etiology. 3. Minimal right middle lobe patchy airspace disease. 4. Incidental multilevel Schmorl nodes and old granulomatous disease.
--- NOTE | 2023-08-03 08:52 | XRAY ---
Indication: Pneumothorax and pneumomediastinum. Comparison: July 29, 2023 PA/lateral chest now demonstrates CT proven minimal right lower lobe pneumothorax best seen on lateral view. No obvious pneumomediastinum. Remaining heart, left lung, and bony thorax unremarkable.
[2023-08-03] MEDS: Acidophilus TABLET PO SCH (09:15)
[2023-08-03] MEDS: Protonix 40MG Tablet PO SCH (09:15)
[2023-08-03] MEDS ORDERED: TYLENOL 325 MG PO PRN (12:47)
[2023-08-03] MEDS ORDERED: Zithromax 500 MG/ 250 ML NaCl Premix 500 MG/250 ML IVPB IV SCH (22:00)
[2023-08-03] MEDS ORDERED: ROCEPHIN 2 Gm-D5w 50ML BAG** 2 G/50 ML IVPB IV SCH (22:00)
[2023-08-04 05:11] LABS: Absolute Neutrophil Ct (ANC) 4.17 x10^3/uL (1.4-6.9); BASOPHIL % 0.7 % (0.0-0.4); Basophil (Absolute #) 0.05 x10^3/uL (0-0.4); Eosinophil % 6.3 % (0.00-5.0); Eosinophil (Absolute #) 0.47 x10^3/uL (0-0.5); Hematocrit 45.8 % (42-50); IMMATURE GRAN # 0.04 x10^3u/L (0.00-0.03); IMMATURE GRAN % 0.5 % (0.00-0.4); Lymphocyte (Absolute #) 1.98 x10^3/uL (1.0-4.6); Lymphocytes % 26.4 % (24.0-44.0); Mean Cell Volume 82.4 fL (78-100); Mean Corpuscular Hemoglobin 28.8 pg (26-32); Mean Corpuscular Hgb Concent. 34.9 g/dL (32-36); Mean Platelet Volume 8.7 fL (7.5-11.0); Monocyte (Absolute #) 0.78 x10^3/uL (0.0-1.3); Monocytes % 10.4 % (0.0-12.0); Neutrophil % 55.7 % (36.0-66.0); Platelet Count 246 x10^3/uL (150-450); Red Blood Count 5.56 x10^6/uL (4.1-5.6); Red Cell Distribution Width 12.8 % (11.5-14.0); White Blood Count 7.5 x10^3/uL (4.0-10.5)
[2023-08-04 05:20] LABS: ALBUMIN 4.2 g/dL (3.5-5.0); BILIRUBIN,TOTAL 0.4 mg/dL (0.2-1.3); Creatinine 1 0.81 mg/dL (0.66-1.25); EST GLOMERULAR FILTRATION RATE 126.3 ML/MIN; Total Protein 7.4 g/dL (6.3-8.2)
--- NOTE | 2023-08-04 05:25 | PCM.DS ---
Discharge Summary Date of Admission: 08/02/23 22:54 Date of Discharge: 08/04/23 Admitting Physician: JOSE MANUEL BERNABE MD Consults: Consults on Case 08/02/23 23:48 Consult Surgery ROUTINE Primary Care Provider: ADOLFO ENSBITT Allergies Allergies No Known Drug Allergies Allergy (Verified 08/02/23 19:15) Hospital Summary - Hospital Course Hospital Course: is a 23 year old male is a patient with a history of Factor V Leiden heterozygosity (but no history of clotting) and a recent diagnosis of a lingular pneumonia approximately 4 days ago (treated with oral Amoxicilin) who presente d110/03/22 to the hospital with worsening cough paroxysms and shortness of breath for 1 day. The cough has been productive intermittently of clear sputum, and he denies hemoptysis. The dyspnea has worsened with activity. Small right pneumothorax and pneumomediastinum noted on imaging. Surgery consulted with no intervention needed. Discharge Note New Diagnosis:Pneumonia/pneumothorax/pneumomediastinum New Medications: Cefpodoxime Follow Up: PCP Latest Assessment & Plan (1) Pneumothorax Current Visit: Yes Status: Acute Assessment & Plan: Small apical pneumothorax and pneumomediastinum noted on imaging. Continue oxygen (no desaturation noted in ED), cough suppression, antibiotics, and repeat CXR imaging in AM per the recommendations of Dr. Lawson, who was consulted by Dr. Pereira. Code(s): J93.9 - PNEUMOTHORAX, UNSPECIFIED 08/03: -Surgery consult pending -Repeat CXR showing reidentified minimal right pneumothorax (2) Pneumomediastinum Current Visit: Yes Status: Acute Assessment & Plan: As above, repeat CXR in AM to reassess. Code(s): J98.2 - INTERSTITIAL EMPHYSEMA (3) Right lower lobe pneumonia Current Visit: No Status: Acute Assessment & Plan: Will place the patient on IV antibiotics. May need alternative regimen plus aggressive cough suppression at the time of discharge. Also will need work/activity clearance at the time of discharge. 08/03: -Continue ceftriaxone/azithromycin Code(s): J18.9 - PNEUMONIA, UNSPECIFIED ORGANISM Code(s): J93.9 - PNEUMOTHORAX, UNSPECIFIED I spent 35 minutes [id number] with the patient on the day of discharge performing discharge exam, discussing hospital stay and discharge instructions with patient and caregivers, preparation of discharge records, prescriptions & referral forms and addressing any questions/concerns the patient had as documented above. - Vitals & Intake/Output Vital Signs: Vital Signs Temperature 98.1 F 08/04/23 03:49 Pulse Rate 81 08/04/23 03:49 Respiratory Rate 15 08/04/23 03:49 Blood Pressure 107/66 08/04/23 03:49 O2 Sat by Pulse Oximetry 95 08/04/23 03:49 Intake & Output: Intake & Output 08/01/23 08/02/23 08/03/23 08/04/23 11:59 11:59 11:59 11:59 Intake Total 240 1020 Balance 240 1020 Weight 104.9 kg - Lab Result Diagrams: 08/04/23 04:41 08/04/23 04:41 Lab Results-Last 24 Hrs: Lab Results-Last 24 Hours 08/04/23 Range/Units 04:41 WBC 7.5 (4.0-10.5) x10^3/uL RBC 5.56 (4.1-5.6) x10^6/uL Hgb 16.0 (12.5-18.0) g/dL Hct 45.8 (42-50) % MCV 82.4 (78-100) fL MCH 28.8 (26-32) pg MCHC 34.9 (32-36) g/dL RDW 12.8 (11.5-14.0) % Plt Count 246 (150-450) x10^3/uL MPV 8.7 (7.5-11.0) fL Gran % 55.7 (36.0-66.0) % Immature Gran % (Auto) 0.5 H (0.00-0.4) % Nucleat RBC Rel Count 0.0 (0.00-0.1) % Eos # (Auto) 0.47 (0-0.5) x10^3/uL Immature Gran # (Auto) 0.04 H (0.00-0.03) x10^3u/L Absolute Lymphs (auto) 1.98 (1.0-4.6) x10^3/uL Absolute Monos (auto) 0.78 (0.0-1.3) x10^3/uL Absolute Nucleated RBC 0.00 (0.00-0.01) x10^3u/L Lymphocytes % 26.4 (24.0-44.0) % Monocytes % 10.4 (0.0-12.0) % Eosinophils % 6.3 H (0.00-5.0) % Basophils % 0.7 (0.0-0.4) % Absolute Granulocytes 4.17 (1.4-6.9) x10^3/uL Basophils # 0.05 (0-0.4) x10^3/uL - Radiology Exams Ordered Rad Exams-Entire Visit: Radiology Procedures Category Date Time Status CHEST 2 VIEWS (PA AND LAT) Routine Exams 08/03/23 07:00 Completed CHEST WITH CONTRAST [CT] Stat Exams 08/02/23 19:37 Completed - Procedures and Test Procedures and Tests throughout Hospitalization: Therapy Orders & Screens 08/02/23 23:18 Oxygen Non-rebreather 100% Comment: Diagnosis: Pneumomediastinum, pneumothorax Discharge Exam General Appearance: no apparent distress Neurologic Exam: alert, oriented x 3, cooperative Eye Exam: PERRL Ears, Nose, Throat Exam: normal ENT inspection Neck Exam: normal inspection Respiratory Exam: crackles/rales Cardiovascular Exam: regular rate/rhythm, normal heart sounds Gastrointestinal/Abdomen Exam: soft, normal bowel sounds Male Genitalia Exam: deferred Rectal Exam: deferred Back Exam: normal inspection Extremity Exam: normal inspection Skin Exam: normal color Final Diagnosis/Problem List - Final Discharge Diagnosis/Problem (1) Pneumothorax Current Visit: Yes Status: Acute Code(s): J93.9 - PNEUMOTHORAX, UNSPECIFIED (2) Pneumomediastinum Current Visit: Yes Status: Acute Code(s): J98.2 - INTERSTITIAL EMPHYSEMA (3) Right lower lobe pneumonia Current Visit: No Status: Acute Code(s): J18.9 - PNEUMONIA, UNSPECIFIED ORGANISM - Discharge Disposition: Home, Self-Care Condition: Stable Prescriptions: New Cefpodoxime Proxetil 200 mg [Vantin 200 mg] 200 mg PO BID 7 Days #14 tablet Continue Benzonatate 200 mg PO QID #30 cap Discontinued Amoxicillin 500 mg Cap [Amoxil 500 mg] 500 mg PO TID #30 cap Instructions: Pneumothorax (Collapsed Lung) (DC) Follow up with: ADOLFO NESBITT NP [Primary Care Provider] - 08/10/23 1:00 pm Forms: Discharge Instructions, Work/School Release Form
[2023-08-04 07:04] VITALS: RESP 18; TEMP 97.1
--- NOTE | 2023-08-04 07:56 | CONS ---
CONSULT DATE: 08/03/2023 HISTORY: I was asked to see the patient in follow up. One of my partners saw the patient yesterday apparently. A 23-year-old had some shortness of breath, had questionable slight amount of mediastinal tiny pneumothorax. He did not have a chest tube at the time. It was felt it was secondary to his respiratory issues. He had follow up chest x-ray today that did not show any visible mediastinum and stable tiny question of pneumothorax. Overall, lungs are expanded. The films were personally reviewed by myself in the radiology department. At this time the patient denies any abdominal pain, denies any new chest pain. He feels like he is breathing much better than he was yesterday and asked to go home tomorrow. He is not having any new chest pain or epigastric pain. PHYSICAL EXAM: ABDOMEN: Soft and nontender. CHEST: Equal excursion. He is hemodynamically stable. His films look like his lungs are well expanded with small pneumothorax stable. IMPRESSION: It was felt that he did not warrant any acute general surgical intervention. Again, this patient was seen for Dr. Lawson who was second baller when the consult came in and asked me to see the patient today when I was doing some outpatient procedures here. He does not appear to need any surgical intervention at this time. I will sign off. He can follow up with Dr. Lawson in the office as needed.
[2023-08-04] MEDS: Protonix 40MG Tablet PO SCH (09:38)
[2023-08-04] MEDS: Acidophilus TABLET PO SCH (09:38)
[2023-08-04 11:50] VITALS: BP 108/60; PULSE 84; O2SAT 93
== END 2023-08-04 12:03 | disposition home or self-care (01) ==
LOC: ED 19:14 → MED SURG 22:54
PROVIDERS: ADMIT Internal Medicine; ATTEND Internal Medicine
DX: J93.9 Pneumothorax, unspecified (principal); J98.2 Interstitial emphysema; J18.9 Pneumonia, unspecified organism; D68.51 Activated protein C resistance; Z79.899 Other long term (current) drug therapy; Z20.828 Contact with and (suspected) exposure to other viral communicable diseases
CPT/HCPCS: 36000; 36415; 71046; 71260; 80048; 80053; 84484; 85025; 93005; 93041; 93268; 94760; 94762; 99285; G0378; Q3014; J0456; J0696; A9270-GY

== ENCOUNTER 2023-08-13 14:40 | Emergency (ER) | payer BC ==
[2023-08-13 14:45] VITALS: TEMP 99.4
[2023-08-13 14:52] LABS: Absolute Neutrophil Ct (ANC) 8.35 x10^3/uL (1.4-6.9); BASOPHIL % 0.5 % (0.0-0.4); Basophil (Absolute #) 0.06 x10^3/uL (0-0.4); Eosinophil % 2.1 % (0.00-5.0); Eosinophil (Absolute #) 0.23 x10^3/uL (0-0.5); Hematocrit 48.2 % (42-50); IMMATURE GRAN # 0.03 x10^3u/L (0.00-0.03); IMMATURE GRAN % 0.3 % (0.00-0.4); Lymphocyte (Absolute #) 1.47 x10^3/uL (1.0-4.6); Lymphocytes % 13.3 % (24.0-44.0); Mean Cell Volume 82.8 fL (78-100); Mean Corpuscular Hemoglobin 29.2 pg (26-32); Mean Corpuscular Hgb Concent. 35.3 g/dL (32-36); Mean Platelet Volume 8.7 fL (7.5-11.0); Monocyte (Absolute #) 0.88 x10^3/uL (0.0-1.3); Neutrophil % 75.8 % (36.0-66.0); Platelet Count 253 x10^3/uL (150-450); Red Blood Count 5.82 x10^6/uL (4.1-5.6); Red Cell Distribution Width 12.5 % (11.5-14.0)
--- NOTE | 2023-08-13 14:53 | ERPHSYRPT ---
- History of Present Illness Source: patient, family Exam Limitations: no limitations Patient Subjective Stated Complaint: pt here for sob started this morning, pt recently was admitted for resp problems and is now on an inhaler and antibotics, denies cough or fever Triage Nursing Assessment: pt alert,walked in.resp easy, pain with deep breath, chest clear, no edema noted, no cough heard Physician History: 23yo m presents for sob. Pt was admitted for pneumothorax one week prior to admission, resolved w/ conservative tx, no chest tube placed. Pt reports he had been feeling better for the past 2-3 days, but started having worsening SOB last night that persists. Pt reports improving cough, was treated for pna last week. Pt denies cp, n/v/abdominal pain, [place], sore throat. 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 Timing/Duration: yesterday Activities at Onset: none Severity of Dyspnea-Max: mild Severity of Dyspnea-Current: mild Possible Cause: unknown cause Modifying Factors: Improves With: activity, coughing, deep breath Associated Symptoms: painful breathing (difficulty taking deep breath 2/2 pain) Allergies/Adverse Reactions: No Known Drug Allergies Allergy (Verified 08/02/23 19:15) Home Medications: Albuterol Sulfate Mdi [ALBUTEROL/Proair Hfa MDI] 2 puff QID 08/13/23 [History] Hx Tetanus, Diphtheria Vaccination/Date Given: Yes Hx Influenza Vaccination/Date Given: No Hx Pneumococcal Vaccination/Date Given: No Immunizations Up to Date: Yes Travel Risk - International Travel Have you traveled outside of the country in past 3 weeks: No - Coronavirus Screening Are you exhibiting any of the following symptoms?: No Close contact with a COVID-19 positive Pt in past 14-21 Days: No - Vaccine Status Have you recieved a Covid-19 vaccination: No - Past Medical History Pertinent Past Medical History: Yes Neurological History: No Pertinent History ENT History: No Pertinent History Cardiac History: No Pertinent History Respiratory History: Asthma, Other Endocrine Medical History: No Pertinent History Musculoskeletal History: No Pertinent History GI Medical History: No Pertinent History History: No Pertinent History Psycho-Social History: No Pertinent History Male Reproductive Disorders: No Pertinent History Other Medical History: tiny pneumo right side 08/2023. Factor V Leiden Deficiency - Past Surgical History Past Surgical History: Yes Neuro Surgical History: No Pertinent History Cardiac: No Pertinent History Respiratory: No Pertinent History Gastrointestinal: No Pertinent History Genitourinary: No Pertinent History Musculoskeletal: Orthopedic Surgery Male Surgical History: No Pertinent History Other Surgical History: feet--flat footed - Social History Smoking Status: Never smoker Exposure to second hand smoke: No Drug Use: none Patient Lives Alone: No - Nursing Vital Signs Nursing Vital Signs: Initial Vital Signs Temperature 99.4 F 08/13/23 14:44 Pulse Rate 99 H 08/13/23 14:44 Respiratory Rate 24 08/13/23 14:44 Blood Pressure 146/106 08/13/23 14:44 O2 Sat by Pulse Oximetry 95 08/13/23 14:44 Pain Scale Pain Intensity 4 - Physical Exam General Appearance: no apparent distress Eye Exam: PERRL/EOMI, eyes nml inspection Ears, Nose, Throat Exam: hearing grossly normal, normal ENT inspection Respiratory Exam: normal breath sounds, airway intact (no wheezing, no rhonchi, breath sounds present diffusely) Cardiovascular/Chest Exam: normal heart sounds, regular rate/rhythm (tachycardic on arrival), normal peripheral pulses Abdominal/Gastrointestinal Exam: soft, normal bowel sounds SpO2 Interpretation: normal SpO2: 95 O2 Delivery: Room Air - Course EKG Interpreted by Me: RATE (97), Sinus Rhythm, NORMAL AXIS, NORMAL INTERVALS, Non-specific ST Changes, Other (no suggestion of ischemia) Ordered Tests: Active Orders 24 hr Category Date Time Status EKG-ER Only STAT Care 08/13/23 14:44 Active IV Insertion STAT Care 08/13/23 14:51 Active CHEST 2 VIEWS (PA AND LAT) Stat Exams 08/13/23 15:07 Taken CHEST WITH CONTRAST [CT] Stat Exams 08/13/23 15:40 Completed CBC W DIFF Stat Lab 08/13/23 14:48 Completed CMP Stat Lab 08/13/23 14:48 Completed MAGNESIUM Stat Lab 08/13/23 14:48 Completed Lab/Rad Data: Laboratory Result Diagrams 08/13/23 14:48 08/13/23 14:48 Laboratory Results 08/13/23 08/13/23 Range/Units 14:48 14:48 WBC 11.0 H (4.0-10.5) x10^3/uL RBC 5.82 H (4.1-5.6) x10^6/uL Hgb 17.0 (12.5-18.0) g/dL Hct 48.2 (42-50) % MCV 82.8 (78-100) fL MCH 29.2 (26-32) pg MCHC 35.3 (32-36) g/dL RDW 12.5 (11.5-14.0) % Plt Count 253 (150-450) x10^3/uL MPV 8.7 (7.5-11.0) fL Gran % 75.8 H (36.0-66.0) % Immature Gran % (Auto) 0.3 (0.00-0.4) % Nucleat RBC Rel Count 0.0 (0.00-0.1) % Eos # (Auto) 0.23 (0-0.5) x10^3/uL Immature Gran # (Auto) 0.03 (0.00-0.03) x10^3u/L Absolute Lymphs (auto) 1.47 (1.0-4.6) x10^3/uL Absolute Monos (auto) 0.88 (0.0-1.3) x10^3/uL Absolute Nucleated RBC 0.00 (0.00-0.01) x10^3u/L Lymphocytes % 13.3 L (24.0-44.0) % Monocytes % 8.0 (0.0-12.0) % Eosinophils % 2.1 (0.00-5.0) % Basophils % 0.5 (0.0-0.4) % Absolute Granulocytes 8.35 H (1.4-6.9) x10^3/uL Basophils # 0.06 (0-0.4) x10^3/uL Sodium 137 (137-145) mmol/L Potassium 3.8 (3.5-5.1) mmol/L Chloride 102 (98-107) mmol/L Carbon Dioxide 25 (22-30) mmol/L Anion Gap 15.1 H (5-15) MEQ/L BUN 9 (9-20) mg/dL Creatinine 0.91 (0.66-1.25) mg/dL Estimated GFR 120.7 ML/MIN Glucose 101 (74-106) mg/dL Calcium 9.8 (8.4-10.2) mg/dL Magnesium 1.9 (1.6-2.3) mg/dL Total Bilirubin 1.00 (0.2-1.3) mg/dL AST 25 (17-59) U/L ALT 28 (0-50) U/L Alkaline Phosphatase 93 (38-126) U/L Serum Total Protein 8.2 (6.3-8.2) g/dL Albumin 4.7 (3.5-5.0) g/dL - Progress Progress: improved Air Movement: good Progress Note: 08/13/23 15:21 cxr - no pneumothorax, no PNA pt still SOB, mother disclosed pt has factor V leiden deficiency, plan for CTA chest for r/o PE 08/13/23 17:47 CTA chest 1. No PE. 2. Multiple patchy ground-glass opacities in both upper lobes with interval progression from the prior study. The primary consideration is pneumonia. Clinical correlation and follow-up are suggested. 3. Stable partially calcified nodules measuring 0.7 cm and 1.0 cm are again seen in the anterior segment of the right upper lobe and apicoposterior segment of the left upper lobe, respectively. discussed CT results w/ pt discussed likely pna - will add course of doxycycline to cover atypical pna pt given light duty work note x 3days pt has f/u w/ pulmonology scheduled plan for dc home w/ outpatient f/u pt and mother voiced understanding and had no further questions Blood Culture(s) Obtained: No Antibiotics given: Yes Medical Desision Making - Diagnostic Testing Diagnostic test were ordered, analyzed, and reviewed by me: Yes Radiological Interpretation: Reviewed by me, Teleradiologist Report - Risk of complications Low Risk: Low risk of morbidity from additional dx testing or treatment - Departure Departure Disposition: Home Clinical Impression: Shortness of breath Pneumonia Qualifiers: Pneumonia type: due to unspecified organism Laterality: bilateral Lung location: upper lobe of lung Qualified Code(s): J18.9 - Pneumonia, unspecified organism Condition: Stable Critical Care Time: No Referrals: ADOLFO NESBITT OPHTHALMOLOGY SURGICAL TECHNICIAN [Primary Care Provider] - Follow up/PCP as directed Additional Instructions: Return to ED if shortness of breath worsens, you develop chest pain or you spike fever follow up with PCP and pulmonology outpatient doxycyline 7 day course prescribed - take complete course
[2023-08-13 15:08] LABS: ALBUMIN 4.7 g/dL (3.5-5.0); ANION GAP 15.1 MEQ/L (5-15); Calcium 9.8 mg/dL (8.4-10.2); Creatinine 1 0.91 mg/dL (0.66-1.25); EST GLOMERULAR FILTRATION RATE 120.7 ML/MIN; MAGNESIUM 1.9 mg/dL (1.6-2.3); Potassium 3.8 mmol/L (3.5-5.1); Total Protein 8.2 g/dL (6.3-8.2)
--- NOTE | 2023-08-13 17:39 | XRAY ---
CLINICAL HISTORY:sob, tachycardia, r/o pe COMPARISON:08/02/2023. TECHNIQUE:Contiguous axial CT images of the chest were acquired without and with the administration of intravenous contrast. Coronal and sagittal reconstructions were obtained. FINDINGS: No pe is seen. Multiple patchy ground-glass opacities are seen in both upper lobes with interval progression from the prior study. Partially calcified nodules measuring 0.7 cm and 1.0 cm are again seen in the anterior segment of the right upper lobe and apicoposterior segment of the left upper lobe, respectively. No free or encysted pleural effusion. Heart size is normal, and there is no pericardial effusion. No pathologically enlarged mediastinal, hilar or axillary lymph node was identified. There is no definite mass lesion in the chest wall. Schmorl's nodes are seen in the thoracic spine The scanned upper abdomen is unremarkable. IMPRESSION: 1. No PE. 2. Multiple patchy ground-glass opacities in both upper lobes with interval progression from the prior study. The primary consideration is pneumonia. Clinical correlation and follow-up are suggested. 3. Stable partially calcified nodules measuring 0.7 cm and 1.0 cm are again seen in the anterior segment of the right upper lobe and apicoposterior segment of the left upper lobe, respectively. The [facility] ER was called at at 04:23 PM ENERGY ANALYST on 08/13/2023 and the results were communicated to Lj Stephens. Electronically Signed by: Iqra Long MD. (08/13/2023 17:34:38 EST)
[2023-08-13 17:50] VITALS: BP 124/80; PULSE 80; RESP 16
[2023-08-13 17:53] VITALS: O2SAT 95
--- NOTE | 2023-08-13 19:07 | XRAY ---
Indication: Short of breath. Comparison: August 03, 2023 PA/lateral chest is inflated and clear again with incidental left upper lobe calcified granuloma. Heart not enlarged. Bony thorax intact. No new/acute findings.
== END 2023-08-13 17:59 | disposition home or self-care (01) ==
LOC: ED 14:40
DX: J18.9 Pneumonia, unspecified organism (principal); R06.02 Shortness of breath; D68.51 Activated protein C resistance; Z79.899 Other long term (current) drug therapy; Z28.310 Unvaccinated for COVID-19
CPT/HCPCS: 36000; 36415; 71046; 71260; 80053; 83735; 85025; 93005; 99284

== ENCOUNTER 2023-10-20 19:28 | Emergency (ER) | payer BC ==
--- NOTE | 2023-10-20 20:21 | ERPHSYRPT ---
- History of Present Illness Time Seen by Provider: 10/20/23 20:21 Historian: patient, family Exam Limitations: no limitations Physician History: This is a 23-year-old white male patient who has not had any prior history of abdominal surgeries and presents with right upper quad abdominal pain since 6:00 this morning. Patient still went to work but was having intermittent episodes of pain. Patient tried to eat something around 1130 this morning but was unable to do so. Patient was off work at 230 and went home to lay down to see if the pain would go away. He has not. Is been present and sharp and stabbing in the right upper quadrant. Patient states he has been having "intestinal issues" intermittently over the last several weeks. Currently, he denies chest pain. He denies shortness of breath. Timing/Duration: today Activities at Onset: none Quality: sharpness, stabbing Abdominal Pain Onset Location: RUQ Pain Radiation: RUQ Severity of Pain-Max: moderate Severity of Pain-Current: moderate Modifying Factors: Improves With: nothing Associated Symptoms: diarrhea, loss of appetite, No chest pain, No headache, No nausea, No shortness of breath, No vomiting Previous symptoms: no prior history, no recent treatment Allergies/Adverse Reactions: No Known Drug Allergies Allergy (Verified 10/20/23 20:19) Home Medications: Albuterol Sulfate Mdi [ALBUTEROL/Proair Hfa MDI] 2 puff QID 08/13/23 [History] Fluticasone/Umeclidin/Vilanter [Trelegy Ellipta 200-62.5-25] 1 puff IH HS 10/20/23 [History] Valacyclovir HCl [Valacyclovir] 500 mg PO DAILY 10/20/23 [History] Hx Tetanus, Diphtheria Vaccination/Date Given: Yes Hx Influenza Vaccination/Date Given: No Hx Pneumococcal Vaccination/Date Given: No Travel Risk - International Travel Have you traveled outside of the country in past 3 weeks: No - Coronavirus Screening Are you exhibiting any of the following symptoms?: Yes - Vaccine Status Have you recieved a Covid-19 vaccination: No - Review of Systems Constitutional: No Symptoms Eyes: No Symptoms Ears, Nose, & Throat: No Symptoms Respiratory: No Symptoms Cardiac: No Symptoms Abdominal/Gastrointestinal: Abdominal Pain, Diarrhea, Appetite Changes, No Con stipation Genitourinary Symptoms: No Symptoms Musculoskeletal: No Symptoms Skin: No Symptoms Neurological: No Symptoms Psychological: No Symptoms Endocrine: No Symptoms Hematologic/Lymphatic: No Symptoms Immunological/Allergic: No Symptoms All Other Systems: Reviewed and Negative - Past Medical History Pertinent Past Medical History: Yes Neurological History: No Pertinent History ENT History: No Pertinent History Cardiac History: No Pertinent History Respiratory History: Asthma, Other Endocrine Medical History: No Pertinent History Musculoskeletal History: No Pertinent History GI Medical History: No Pertinent History History: No Pertinent History Psycho-Social History: No Pertinent History Male Reproductive Disorders: No Pertinent History Other Medical History: tiny pneumo right side 08/2023. Factor V Leiden Deficiency - Past Surgical History Past Surgical History: Yes Neuro Surgical History: No Pertinent History Cardiac: No Pertinent History Respiratory: No Pertinent History Gastrointestinal: No Pertinent History Genitourinary: No Pertinent History Musculoskeletal: Orthopedic Surgery Male Surgical History: No Pertinent History Other Surgical History: feet--flat footed - Social History Smoking Status: Never smoker Exposure to second hand smoke: No Drug Use: none Patient Lives Alone: No - Nursing Vital Signs Nursing Vital Signs: Initial Vital Signs Pulse Rate 97 H 10/20/23 20:15 Respiratory Rate 21 10/20/23 20:15 Blood Pressure 116/83 10/20/23 20:15 O2 Sat by Pulse Oximetry 96 10/20/23 20:15 Pain Scale Pain Intensity 4 - Physical Exam General Appearance: no apparent distress, alert, anxiety Eye Exam: PERRL/EOMI, eyes nml inspection Ears, Nose, Throat Exam: normal ENT inspection, moist mucous membranes Neck Exam: normal inspection, non-tender, supple, full range of motion Respiratory Exam: normal breath sounds, lungs clear, No chest tenderness, No respiratory distress Cardiovascular Exam: regular rate/rhythm, normal heart sounds, normal peripheral pulses Gastrointestinal/Abdomen Exam: soft, normal bowel sounds, tenderness (Right upper quadrant), guarding (Right upper quadrant), No pulsatile mass, No rebound Rectal Exam: not done Back Exam: normal inspection, normal range of motion, No CVA tenderness, No vertebral tenderness Extremity Exam: normal inspection, normal range of motion, pelvis stable Neurologic Exam: alert, oriented x 3, cooperative, 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 nml as tested, normal mood/affect, nml cerebellar function, nml station & gait, sensation nml Skin Exam: normal color, warm, dry Lymphatic Exam: No adenopathy SpO2 Interpretation: normal O2 Delivery: Room Air - Course Nursing assessment & vital signs reviewed: Yes Ordered Tests: Active Orders 24 hr Category Date Time Status IV Insertion STAT Care 10/20/23 20:46 Active ABDOMEN AND PELVIS W/0 CONTRAS [CT] Stat Exams 10/20/23 20:46 Taken AMYLASE Stat Lab 10/20/23 20:40 Completed CBC W DIFF Stat Lab 10/20/23 20:46 Completed CMP Stat Lab 10/20/23 20:40 Completed LIPASE Stat Lab 10/20/23 20:40 Completed UA W/RFX UR CULTURE Stat Lab 10/20/23 20:40 Completed Medication Summary Discontinued Medications Generic Name Dose Route Start Last Admin Trade Name Freq PRN Reason Stop Dose Admin Hydromorphone HCl 1 mg 10/20/23 20:46 10/20/23 21:15 Hydromorphone 1 Mg/1ml Inj IV 10/20/23 20:47 1 mg STAT ONE Administration Hydromorphone HCl Confirm 10/20/23 21:10 Hydromorphone 1 Mg/1ml Inj Administered 10/20/23 21:11 Dose 1 mg .ROUTE .STK-MED ONE Sodium Chloride 1,000 mls @ 999 mls/hr 10/20/23 20:46 10/20/23 21:12 Sodium Chloride 0.9% 1000 Ml IV 10/20/23 21:46 999 mls/hr .Q1H1M STA Administration Sodium Chloride Confirm 10/20/23 21:11 Sodium Chloride 0.9% 1000 Ml Administered 10/20/23 21:12 Dose 1,000 mls @ ud .ROUTE .STK-MED ONE Ondansetron HCl 4 mg 10/20/23 20:46 10/20/23 21:14 Ondansetron Hcl 4 Mg/2 Ml Vial IV 10/20/23 20:47 4 mg STAT ONE Administration Ondansetron HCl Confirm 10/20/23 21:10 Ondansetron Hcl 4 Mg/2 Ml Vial Administered 10/20/23 21:11 Dose 4 mg .ROUTE .STK-MED ONE Lab/Rad Data: Laboratory Result Diagrams 10/20/23 20:46 10/20/23 20:40 Laboratory Results 03/15/24 03/15/24 03/15/24 Range/Units 20:46 20:40 20:40 WBC 9.0 (4.0-10.5) x10^3/uL RBC 5.71 H (4.1-5.6) x10^6/uL Hgb 16.7 (12.5-18.0) g/dL Hct 47.2 (42-50) % MCV 82.7 (78-100) fL MCH 29.2 (26-32) pg MCHC 35.4 (32-36) g/dL RDW 11.9 (11.5-14.0) % Plt Count 200 (150-450) x10^3/uL MPV 8.3 (7.5-11.0) fL Gran % 78.3 H (36.0-66.0) % Immature Gran % (Auto) 0.3 (0.00-0.4) % Nucleat RBC Rel Count 0.0 (0.00-0.1) % Eos # (Auto) 0.19 (0-0.5) x10^3/uL Immature Gran # (Auto) 0.03 (0.00-0.03) x10^3u/L Absolute Lymphs (auto) 0.85 L (1.0-4.6) x10^3/uL Absolute Monos (auto) 0.85 (0.0-1.3) x10^3/uL Absolute Nucleated RBC 0.00 (0.00-0.01) x10^3u/L Lymphocytes % 9.5 L (24.0-44.0) % Monocytes % 9.5 (0.0-12.0) % Eosinophils % 2.1 (0.00-5.0) % Basophils % 0.3 (0.0-0.4) % Absolute Granulocytes 7.04 H (1.4-6.9) x10^3/uL Basophils # 0.03 (0-0.4) x10^3/uL Sodium 137 (135-145) mmol/L Potassium 3.9 (3.5-5.1) mmol/L Chloride 103 (98-107) mmol/L Carbon Dioxide 23 (22-30) mmol/L Anion Gap 15.5 H (5-15) MEQ/L BUN 12 (9-20) mg/dL Creatinine 0.91 (0.66-1.25) mg/dL Estimated GFR 120.7 ML/MIN Glucose 88 (74-106) mg/dL Calcium 9.1 (8.4-10.2) mg/dL Total Bilirubin 0.80 (0.2-1.3) mg/dL AST 26 (17-59) U/L ALT 25 (0-50) U/L Alkaline Phosphatase 113 (38-126) U/L Serum Total Protein 8.2 (6.3-8.2) g/dL Albumin 4.5 (3.5-5.0) g/dL Amylase 73 (30-110) U/L Lipase 61 (23-300) U/L Urine Color Yellow (Yellow) Urine Appearance Clear (Clear) Urine pH 6.0 (4.6-8.0) Ur Specific [place] 1.025 (1.005-1.030) Urine Protein Negative (Negative) Urine Glucose (UA) Negative (Negative) mg/dL Urine Ketones Trace A (Negative) Urine Blood Negative (Negative) Urine Nitrite Negative (Negative) Urine Bilirubin Negative (Negative) Urine Urobilinogen 1.0 A (0.2) mg/dL Ur Leukocyte Esterase Negative (Negative) U Hyaline Cast (Auto) NONE SEEN (0-2) /LPF Urine Microscopic RBC 0-2 (0-5) /HPF Urine Microscopic WBC 0-2 (0-5) /HPF Ur Epithelial Cells None Seen (None Seen) /HPF Urine Bacteria None Seen (None Seen) /HPF Urine Culture Reflexed NO (NO) - Progress Progress: improved, pain not gone completely Progress Note: 10/20/23 21:35 This patient's medical issue is 1 of moderate complexity. The level complexity in the workup performed is based on review of the patient's past medical history, review of the patient's medication list, review of patient drug allergy list, history present illness and physical findings on examination. The workup in this patient includes placement of intravenous line, infusion of normal saline solution, CBC, CMP, amylase, lipase, urinalysis, infusion of 4 mg intravenous Zofran, infusion of 1 mg of intravenous Dilaudid, CT scan of the abd omen pelvis without contrast. 10/20/23 21:48 I interpreted the patient's laboratory data results. Based on the laboratory data results there are no acute, emergent medical issues. CT scan of the abdomen and pelvis without contrast was interpreted by the radiologist and I reviewed the impression. Impression states there are no comparison films. There is mild diffuse colonic diarrhea. Otherwise normal CT scan of the abdomen pelvis without contrast. Counseled pt/family regarding: lab results, diagnosis, need for follow-up, rad results Medical Desision Making - Independent Historian Additional History obtained from: Mother - Diagnostic Testing Diagnostic test were ordered, analyzed, and reviewed by me: Yes Radiological Interpretation: Reviewed by me, Teleradiologist Report - Risk of complications The pt has a mod risk of morbidity or mortality based on: Need for prescription drug management - Departure Departure Disposition: Home Clinical Impression: Colitis Condition: Stable Critical Care Time: No Referrals: ADOLFO NESBITT SATELLITE INSTALLATION TECHNICIAN [Primary Care Provider] - Follow up/PCP as directed Additional Instructions: Drink plenty of fluids. Avoid fatty greasy spicy foods. Call your primary care provider on 10/23/2023, to make arrangements for an out patient appointment in the next 3 to 5 days. Discussed with them gallbladder ultrasound if indicated. Take your medication as prescribed. Prescriptions: Metronidazole 500 mg [Flagyl 500 MG] 500 mg PO TID #21 tablet
[2023-10-20 20:28] VITALS: TEMP 98.7
[2023-10-20 20:50] LABS: Absolute Neutrophil Ct (ANC) 7.04 x10^3/uL (1.4-6.9); BASOPHIL % 0.3 % (0.0-0.4); Basophil (Absolute #) 0.03 x10^3/uL (0-0.4); Eosinophil % 2.1 % (0.00-5.0); Eosinophil (Absolute #) 0.19 x10^3/uL (0-0.5); Hematocrit 47.2 % (42-50); Hemoglobin 16.7 g/dL (12.5-18.0); IMMATURE GRAN # 0.03 x10^3u/L (0.00-0.03); IMMATURE GRAN % 0.3 % (0.00-0.4); Lymphocyte (Absolute #) 0.85 x10^3/uL (1.0-4.6); Lymphocytes % 9.5 % (24.0-44.0); Mean Cell Volume 82.7 fL (78-100); Mean Corpuscular Hemoglobin 29.2 pg (26-32); Mean Corpuscular Hgb Concent. 35.4 g/dL (32-36); Mean Platelet Volume 8.3 fL (7.5-11.0); Monocyte (Absolute #) 0.85 x10^3/uL (0.0-1.3); Monocytes % 9.5 % (0.0-12.0); Neutrophil % 78.3 % (36.0-66.0); Platelet Count 200 x10^3/uL (150-450); Red Blood Count 5.71 x10^6/uL (4.1-5.6); Red Cell Distribution Width 11.9 % (11.5-14.0)
[2023-10-20 21:04] LABS: ALBUMIN 4.5 g/dL (3.5-5.0); ANION GAP 15.5 MEQ/L (5-15); BILIRUBIN,TOTAL 0.8 mg/dL (0.2-1.3); Calcium 9.1 mg/dL (8.4-10.2); Creatinine 1 0.91 mg/dL (0.66-1.25); EST GLOMERULAR FILTRATION RATE 120.7 ML/MIN; Potassium 3.9 mmol/L (3.5-5.1); Total Protein 8.2 g/dL (6.3-8.2)
[2023-10-20] MEDS ORDERED: Hydromorphone 1 mg/ml Injection ONE (21:10)
[2023-10-20] MEDS ORDERED: Zofran 4 MG/2 ML VIAL ONE (21:10)
[2023-10-20] MEDS ORDERED: Sodium Chloride 0.9% 1000 ML 1,000 ML ONE (21:11)
[2023-10-20] MEDS: Sodium Chloride 0.9% 1000 ML 1,000 ML IV STA (21:12)
[2023-10-20] MEDS: Zofran 4 MG/2 ML VIAL IV ONE (21:14)
[2023-10-20] MEDS: Hydromorphone 1 mg/ml Injection IV ONE (21:15)
[2023-10-20 21:38] LABS: Appearance Clear (Clear); Bacteria None Seen /HPF (None Seen); Bilirubin Negative (Negative); Blood Negative (Negative); Epithelial Cells None Seen /HPF (None Seen); Glucose, Urine Negative (Negative); Hyaline Casts NONE SEEN /LPF (0-2); Ketones Trace (Negative); Leukocyte Esterase Negative (Negative); Nitrite Negative (Negative); Protein,Urine Dip Negative (Negative); RBC 0-2 /HPF (0-5); Specific Gravity 1.025 (1.005-1.030); WBC 0-2 /HPF (0-5)
[2023-10-20 21:39] LABS: ADD URINE CULTURE? NO (NO)
[2023-10-20] MEDS ORDERED: Flagyl 500 MG ONE (21:53)
[2023-10-20] MEDS: Flagyl 500 MG PO ONE (21:54)
[2023-10-20 22:13] VITALS: BP 133/82; PULSE 86; RESP 15; O2SAT 95
--- NOTE | 2023-10-21 07:24 | XRAY ---
Indication: Right upper quadrant pain. Diarrhea. Multiple contiguous axial images obtained through the abdomen and pelvis without contrast. Comparison: None Lung bases clear. Heart not enlarged. Noncontrasted stomach and bowel loops appear nonobstructed with normal appearing appendix. Mild diffuse scattered colonic diarrhea. Urinary bladder demonstrates mild circumferential wall thickening either incomplete distention versus cystitis. No free fluid/air. Remaining liver, gallbladder, pancreas, spleen, adrenal glands, kidneys, ureters, bladder, and aorta are unremarkable for noncontrast exam. Osseous structures intact. No ventral or inguinal hernias. Impression: 1. Colonic diarrhea. 2. Urinary bladder circumferential wall thickening either incomplete distention versus cystitis. 3. Remaining CT abdomen/pelvis without contrast exam is negative.
== END 2023-10-20 22:33 | disposition home or self-care (01) ==
LOC: ED 19:28
DX: K52.9 Noninfective gastroenteritis and colitis, unspecified (principal); R10.11 Right upper quadrant pain; Z79.899 Other long term (current) drug therapy; Z28.310 Unvaccinated for COVID-19
CPT/HCPCS: 36000; 36415; 74176; 80053; 81001; 82150; 83690; 85025; 96374; 96375; 99284; J1170; J2405; A9270-GY